=== PATIENT | male | born 1995 | race African-American/Black ===

== ENCOUNTER 2025-01-12 11:06 | Emergency (ER) | payer MEDICAID ==
[2025-01-12] MEDS ORDERED: Lidocaine 4% Patch ONE (11:53)
[2025-01-12 12:00] LABS: #Basophils 0.1 thou/uL (0.0-0.2); #Eosinophils 0.4 thou/uL (0.0-0.7); #Lymphocytes 1.7 thou/uL (1.20-3.40); #Monocytes 0.4 thou/uL (0.11-0.59); #Neutrophils 2.9 thou/uL (1.40-6.50); %Basophils 1.6 % (0.0-1.0); %Eosinophils 7.5 % (0.0-10.0); %Lymphocytes 31.4 % (21.0-51.0); %Monocytes 6.9 % (0.0-10.0); %Neutrophils 52.7 % (42.0-75.0); Hematocrit 44.7 % (42.0-52.0); Hemoglobin 13.8 g/dL (14.0-18.0); Mean Corpuscular HGB CONC 30.9 g/dL (32.0-36.0); Mean Corpuscular Hemoglobin 28.1 pg (27.0-31.0); Mean Corpuscular Volume 90.8 fl (78.0-98.0); Mean Platelet Volume 8.6 fL (7.4-10.4); Platelet Count 219 10x3/uL (130-400); RBC Distribution Width 13.7 % (11.5-14.5); Red Blood Cell (RBC) Count 4.92 mill/uL (4.70-6.10); White Blood Cell (WBC) Count 5.5 10x3/uL (4.8-10.8)
[2025-01-12 12:21] LABS: ALT (SGPT) 17 U/L (Less than 45); AST (SGOT) 15 U/L (11-34); Albumin 4.2 g/dL (3.1-4.5); Alkaline Phosphatase 59 U/L (40-110); Anion Gap 13 mmol/L (10-20); BUN (Urea Nitrogen) 15 mg/dL (8.9-20.6); Bilirubin, Total 0.8 mg/dL (0.3-1.2); Calc. Creatinine Clearance 0 mL/min (70-130); Calcium 9.8 mg/dL (7.8-10.44); Carbon Dioxide 28 mmol/L (22-29); Chloride 103 mmol/L (98-107); Estimated GFR 129; Globulin 3.4 g/dL (2.4-3.5); Glucose 88 mg/dL (70-105); Potassium 4.4 mmol/L (3.5-5.1); Protein, Total 7.6 g/dL (6.0-8.3); Sodium 140 mmol/L (136-145)
[2025-01-12 12:26] LABS: Troponin I Less than 0.010 ng/mL (< 0.028)
[2025-01-12] MEDS ORDERED: Ketorolac Tromethamine 30 MG (1 mL) VIAL ONE (12:34)
== END 2025-01-12 16:36 ==
LOC: MADERS 11:06
DX: R07.89 Other chest pain (principal)
CPT/HCPCS: 80053; 84484; 85025; 93005; 96374; J1885

== ENCOUNTER 2025-08-14 18:13 | Emergency (ER) | payer MEDICAID, OTHER ==
[2025-08-14] MEDS ORDERED: Lidocaine 1% PF 5 ML VIAL ONE (18:28)
[2025-08-14] MEDS ORDERED: HYDROcodone/Acetaminophen 5/325 mg Tablet ONE (18:28)
== END 2025-08-14 20:00 ==
LOC: MADERS 18:13
DX: S01.111A Laceration without foreign body of right eyelid and periocular area, initial encounter (principal); S01.81XA Laceration without foreign body of other part of head, initial encounter; W05.0XXA Fall from non-moving wheelchair, initial encounter
CPT/HCPCS: 70450; 70486